=== PATIENT | female | born 2000 | race Two or more races ===

== ENCOUNTER → 2024-10-15 | Outpatient (CLI) | payer BC, SELFPAY ==
--- NOTE | 2024-10-15 08:41 | XR_ITS ---
Examination: Bilateral lower legs 4 views Technique one AP lateral right and left lower legs 4 views Exam date and time: October 15, 2024 0940 hours INDICATIONS: Bilateral caban pain after running 2 months ago FINDINGS: No fractures depicted No cortical bone destruction No opaque foreign bodies IMPRESSION: No stress fractures or other fractures noted
[2024-10-15 10:42] LABS: Collection Type, Urine Clean Catch
[2024-10-15 11:00] LABS: Basophils % (Auto) 1 % (0-2.5); Eosinophils # (Auto) 0.1 Thou/mm3 (0.0-0.5); Eosinophils % (Auto) 1 % (0-10); Hematocrit 39.5 % (36.0-46.0); Hemoglobin 13.3 g/dL (12.0-16.0); Immature Granulocytes % (Auto) 0 % (0-0); Immature Granulocytes Auto 0.01 Thou/mm3 (0.00-0.00); Lymphocytes # (Auto) 2.6 Thou/mm3 (1.0-4.8); Lymphocytes % (Auto) 43 % (10-50); Mean Corpuscular HGB Conc 33.7 g/dl (31.0-37.0); Mean Corpuscular Hemoglobin 28.4 pg (25.0-35.0); Mean Corpuscular Volume 84 fL (80-100); Monocytes # (Auto) 0.5 Thou/mm3 (0.0-0.8); Monocytes % (Auto) 7 % (0-12); Neutrophils % (Auto) 48 % (37-80); Nucleated Red Blood Cell % 0 /100 WBC (0); Platelet Count 260 Thou/mm3 (140-440); Red Blood Count 4.68 Miln/mm3 (4.00-5.20); White Blood Count 6.2 Thou/mm3 (3.6-11.0)
[2024-10-15 11:07] LABS: Bilirubin,Urine Negative (Negative); Blood,Urine Negative (Negative); Clarity,Urine Clear (Clear/Hazy); Color,Urine Lt-Yellow (Lt Yel-Yel); Culture Indicated,Urine Not Indicated; Glucose, Urine Negative (Negative); Ketones,Urine Negative (Negative); Leukocyte Esterase,Urine Positive (Negative); Nitrite,Urine Negative (Negative); Protein,Urine Negative (Neg - Trace); RBC,Urine 2 /hpf (0-3); Specific Gravity,Urine 1.012 (1.001-1.035); Squamous Epithelial Cell,Urine 8 /hpf (0-5); Urobilinogen,Urine Negative mg/dL (0.0-1.0); WBC,Urine 8 /hpf (0-5)
[2024-10-15 11:15] LABS: Alanine Aminotransferase 20 U/L (10-49); Albumin, Serum 4.7 gm/dL (3.5-5.0); Albumin/Globulin Ratio 1.9 (1.2-2.2); Alkaline Phosphatase 83 U/L (46-116); Anion Gap 5 (7-16); Aspartate Amino Transferase 19 U/L (0-34); BUN/Creatinine Ratio 14 Ratio (12-20); Bilirubin,Total 0.6 mg/dL (0.3-1.2); Blood Urea Nitrogen 14 mg/dL (9-23); Carbon Dioxide 28.3 mMol/L (20.0-31.0); Cardiac Risk Estimate 2.5 RATIO (3.7-5.6); Chloride 105 mMol/L (98-107); Cholesterol 151 mg/dL (132-200); Globulin 2.5 gm/dL (2.3-3.5); Glucose 89 mg/dL (74-106); HDL Cholesterol 61 mg/dL (40-60); LDL Cholesterol,Calculated 79 mg/dL (0-130); Osmolality,Calculated 275 (275-295); Potassium 3.9 mMol/L (3.4-5.1); Sodium 138 mMol/L (136-145); Thyroid Stimulating Hormone 1.75 uIU/mL (0.55-4.78); Total Protein 7.2 gm/dL (5.7-8.2); Triglycerides 57 mg/dL (30-150); eGFR > 60 See Note
[2024-10-15 11:17] LABS: Iron 113 mcg/dL (50-170); Vitamin B12 883 pg/mL (211-911); Vitamin D 25 Hydroxy Total 28.7 ng/mL (7.3-40.2)
== END | disposition home or self-care (01) ==
LOC: COPL 08:26
PROVIDERS: PCP Family Medicine; Referring Provider Nurse Practitioner Family; Visit Provider Radiology Diagnostic Radiology
DX: M79.669 Pain in unspecified lower leg (principal); D64.9 Anemia, unspecified; Z13.220 Encounter for screening for lipoid disorders
CPT/HCPCS: 36415; 73590; 80053; 80061; 81001; 82306; 82607; 83540; 84443; 85025

== ENCOUNTER 2025-05-13 13:46 | Outpatient (AMB) | payer BC, SELFPAY ==
--- NOTE | 2025-05-13 14:02 | OBCLNT_ITS ---
Vital Signs 05/13/25 14:09 Height 1.78 m Height Method Stated Weight 86.296 kg Weight Measurement Method Standing Scale BMI 27.3 BP 121/73 Blood Pressure Source Automatic Cuff Blood Pressure Location Right Upper Arm Position Sitting Respiration 17 Pulse 74 Pulse Source Monitor Temp 98.3 F Temp Source Temporal Artery Scan Pulse Oximetry (%) 98 Oxygen Delivery Method Room Air Allergies/Home Meds Allergies & Medications Allergies No Known Allergies Allergy (Verified 05/13/25 14:02) Intake Visit Data Collection New Patient or Established: New Patient (never been to [facility]) Reason for Visit:: OBI Printer'S Devil Required: No Do You Feel Safe at Home: Yes Authorities Contacted: N/A PCP or OBGYN visit in last 3 months: No Hx Now: Yes Last menstrual period: 03/21/25 Pain Present Currently: No Pain Scale Used: Najera-Lipscomb/Numerical Pain scale:: 0 Smoking Status Smoking Status: Never smoker Questionnaires Covid-19 Vaccine Questionnaire Has patient been vacinated for Covid-19 Have you been vacinated for Covid-19: No PHQ-9 PHQ-2 Over the last 2 weeks, how often have you been bothered by any of the following problems? 1. Little interest or pleasure in doing things: not at all 2. Feeling down, depressed, or hopeless: not at all Total score: 0 PHQ-9 3. Trouble falling or staying asleep, or sleeping too much: Not at all 4. Feeling tired or having little energy: Not at all 5. Poor appetite or overeating: Not at all 6. Feeling bad about yourself - or that you are a failure or have let yourself or your family down: Not at all 7. Trouble concentrating on things, such as reading the newspaper or watching television: Not at all 8. Moving or speaking so slowly that other people could have noticed? - Or the opposite - being so fidgety or restless that you have been moving around a lot more than usual: not at all 9. Thoughts that you would be better off or of hurting yourself in some way: Not at all Total score: 0 If you checked off any problems, how difficult have these problems made it for you to do your work, take care of things at home, or get along with other people?: not difficult at all Source: Developed by Drs. Jeffrey Pinedo, Sheri Malone, Lorne Harding and colleagues, with an educational kirk from [employer]. Depression screen completed yes Social History Living Situation History Marital Status: Life Partner Lives With: Significant Other Housing: House Housing Other:: Works at [employer]. FOB is personnel training officer Tobacco History Smoking Status: Never smoker Second Hand Smoke Exposure: Yes Alcohol History Alcohol Intake: Former Alcohol Intake Frequency: holidays/special occasions only Domestic Abuse History Do You Feel Safe at Home: Yes History of Present Illness HPI Narrative The patient is a 24 y/o who presents for a new OB appointment with the FOB. 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 They both are excited about the . She reports some spotting two weeks ago. 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: Past Medical History Past Medical History: No Hx Renal Disease, No Hx Diabetes Mellitus Type 1 and No Hx Diabetes Mellitus Type 2 Additional Operations/Hospitalizations (year & reason): Denies significant surgical history Other Relevant History: Denies any significant medical history OB Initial Visit Menstrual History Menstrual reliability: definite Flow: normal Menstrual regularity: regular Monthly: Yes Age at menarche: 13 On control pills at conception: No OB History : 1 Para: 0 Hx # Pregnancies: 0 Hx Total # of Abortions (Spontaneous & Elective): 0 # of Living Children: 0 Infection History & Risk Evaluation History of STDs: HPV Hepatitis B risk evaluation: low risk Patient or partner has history of Genital Herpes: No Varicella/chicken pox status: unknown Genetic Screening & History Genetic Screening/Teratology Counseling - Includes patient, baby's father, or anyone in either family with: 1. Patient's age 35 years or older as of estimated date of delivery: No 2. Thalassemia (Turks And Caicos Islander, Indonesian, Mediterranean, or Background); MCV less than 80: No 3. Neural Tube Defect (Meningomyelocele, Spina Bifida, or Anencephaly): No 4. Congenital Heart Defect: No 5. Down Syndrome: No 6. Cristino-Sachs (Ashkenazi Yazdanism, Cajun, English Moldovan): No 7. Carolyn Disease (Ashkenazi Yazdanism): No 8. Familial Dysautonomia (Ashkenazi Yazdanism): No 9. Sickle Cell Disease or Trait (): No 10. Hemophilia or other blood disorders: No 11. Muscular Dystrophy: No 12. Cystic Fibrosis: No 13. Placer's Chorea: No 14. Mental Retardation/Autism: No 15. Other inherited genetic or chromosomal disorder: No 16. Maternal Metabolic Disorder (EG,TYPE 1 Diabetes, PKU): No 17. Patient or baby's father had a child with defects not listed above: No 18. Recurrent loss or a stillbirth: No 19. Medications (including supplements, vitamins, herbs or otc drugs)/illicit/recreational drugs/alcohol since last menstrual period: No 20. Any other: No Infection History 1. Live with someone with TB or exposed to TB: No 2. Rash or viral illness since last menstrual period: No 3. Hepatitis B,C: No Other (see comments) Source: [employer] Review of Systems Review of Systems Narrative Review of Systems: +fatigue and breast tenderness, + mild nausea Exam General Limitations: no limitations General Appearance: alert, in no apparent distress, comfortable, cooperative, healthy appearing and well groomed Head Head exam: atraumatic, normocephalic and normal inspection Neck Neck exam: Present normal inspection, full ROM and trachea midline Chest Chest inspection: Present normal inspection and symmetric chest wall rise Resp Respiratory exam: Present normal lung sounds bilaterally Card Cardiovascular exam: Present regular rate, normal rhythm and normal heart sounds Abdominal Abdominal exam: Present soft and normal bowel sounds External exam: Present normal external exam Bimanual exam: Present normal bimanual exam (uterus 8 week size. Adequate pelvic outlet) Extremities Extremities exam: Present normal inspection and full ROM Psych Psychiatric exam: Present normal affect and normal mood Skin Skin exam: Present warm, dry, intact and normal color Office Procedures OB Clinic LOC & Office Proc's Nursing/Assessment Patient Status: Initial/New Patient OB Clinic Nursing Assessment: Medication Reconciliation, Update PMH in EMR and Vital Signs OB Clinic Coordination of Care: Complex Care and Chronic Disease 1-5, Consent,records obtained, informed consent, Education Simp Pt/Fam, Lab and Imaging orders and Staff clarify orders Special Needs: Heart tones New Patient Charge New Patient Point Assignment: [id number] New Patient Point Charge: SMOOTH AND BURR WORKER COMPOSITES Level 4 ([id number]) Assessment & Plan Diagnosis / Problem List (1) : Status: Acute Qualifiers: Weeks of gestation: less than 8 weeks Qualified Code(s): Z3A.01 - Less than 8 weeks gestation of Assessment and Plan: PNC labs ordered and NIPT from [facility]. New OB discussion. All questions answered. Pt will take vitamins. Offical US ordered for 2 weeks from now. Additional Plan Follow Up: 4 Weeks
[2025-05-13 14:09] VITALS: BP 121/73; PULSE 74; RESP 17; TEMP 36.8; O2SAT 98; BMI 27.3
== END 2025-05-13 14:38 | disposition home or self-care (01) ==
LOC: HODSOBC 13:46
PROVIDERS: PCP Family Medicine; Referring Provider Family Medicine; Supervising Provider Obstetrics & Gynecology; Visit Provider Obstetrics & Gynecology
DX: Z34.01 Encounter for supervision of normal first pregnancy, first trimester (principal); Z3A.01 Less than 8 weeks gestation of pregnancy
CPT/HCPCS: 99204; G0463

== ENCOUNTER 2025-07-08 13:05 | Outpatient (AMB) | payer BC, SELFPAY ==
[2025-07-08 13:06] VITALS: BP 120/76; PULSE 87; RESP 18; TEMP 36.8; O2SAT 98; BMI 28.8
--- NOTE | 2025-07-08 13:06 | AMB.OBVISIT ---
Vital Signs 07/08/25 13:06 Height 1.78 m Height Method Stated Weight 91.399 kg Weight Measurement Method Standing Scale BMI 28.8 BP 120/76 Blood Pressure Source Automatic Cuff Blood Pressure Location Left Upper Arm Position Sitting Respiration 18 Pulse 87 Pulse Source Monitor Temp 98.2 F Temp Source Oral Pulse Oximetry (%) 98 Oxygen Delivery Method Room Air Allergies/Home Meds Allergies & Medications Allergies No Known Allergies Allergy (Verified 07/08/25 13:07) Medication Reconciliation fluconazole 150 mg tablet 150 mg PO QDAY 1 dose #1 tab 07/08/25 [Rx] Intake Visit Data Collection New Patient or Established: Established Patient (seen at [facility] within 3 years) Reason for Visit:: CARE Seen by Clinical Staff ONLY (RN/MA): No Weigher And Charger Required: No Do You Feel Safe at Home: Yes Authorities Contacted: N/A PCP or OBGYN visit in last 3 months: Yes Hx Now: Yes Are you currently on any form of Control: No Pain Present Currently: No Pain Scale Used: Najera-Lipscomb/Numerical Pain scale:: 0 Smoking Status Smoking Status: Never smoker Questionnaires Covid-19 Vaccine Questionnaire Has patient been vacinated for Covid-19 Have you been vacinated for Covid-19: Yes PHQ-9 PHQ-2 Over the last 2 weeks, how often have you been bothered by any of the following problems? 1. Little interest or pleasure in doing things: not at all 2. Feeling down, depressed, or hopeless: not at all Total score: 0 PHQ-9 3. Trouble falling or staying asleep, or sleeping too much: Not at all 4. Feeling tired or having little energy: Not at all 5. Poor appetite or overeating: Not at all 6. Feeling bad about yourself - or that you are a failure or have let yourself or your family down: Not at all 7. Trouble concentrating on things, such as reading the newspaper or watching television: Not at all 8. Moving or speaking so slowly that other people could have noticed? - Or the opposite - being so fidgety or restless that you have been moving around a lot more than usual: not at all 9. Thoughts that you would be better off or of hurting yourself in some way: Not at all Total score: 0 Source: Developed by Drs. Jeffrey Pinedo, Sheri Malone, Lorne Harding and colleagues, with an educational kirk from [employer]. 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 Care OB Visit Log OB Flowsheet Initial Weight: Not Recorded Date <del>?</del> EGA Weight BP Alb Glu CTX Pres Fundal ht FHR Mov Dilation Station Effacement Hx Notes Visit Note 07/08/25 <del>?</del> 15w 4d 91.399 kg 120/76 15 Patient has some spotting recently. She also thinks she has a yeast infection. She was on amoxicillin recently for sinus infection. No heavy bleeding or cramps. Ultrasound was done revealing a live intrauterine measuring 5 weeks with cardiac activity in the 140s. JEAN-PAUL Calculator Estimated Delivery Date Method Current WG Current Estimate 12/26/25 LMP (Certain) 15w 4d Other Estimates 12/27/25 Ultrasound #1 15w 3d Expected Delivery Route/Plan 24-year-old Anticipate labs are as follows: B+ positive/antibody negative/rubella immune/RPR nonreactive/HIV negative/hepatitis B surface antigen negative/hep C negative/GC chlamydia negative/NIPT 46 XY Office Procedures OB Clinic LOC & Office Proc's Nursing/Assessment Patient Status: Established Patient OB Clinic Nursing Assessment: Medication Reconciliation, Update PMH in EMR and Vital Signs OB Clinic Coordination of Care: Complex Care and Chronic Disease 1-5, Consent,records obtained, informed consent, Education Simp Pt/Fam, Lab and Imaging orders, Results/Orders obtained and Staff clarify orders Special Needs: Heart tones Established Patient Charge Established Patient Point Assignment: 135 Established Patient Point Charge: EP Level 4 (510-069) Assessment & Plan Diagnosis / Problem List (1) : Status: Acute Qualifiers: Weeks of gestation: less than 8 weeks Qualified Code(s): Z3A.01 - Less than 8 weeks gestation of Plan: Patient is doing well. She has good energy. All questions were answered. Reassurance was given for the spotting. Told her it was most likely due to cervical irritation from her recent recent yeast infection. I did prescribe Diflucan. Patient's due date is 12/26/2025. Of note was given for light duty at work. Patient will follow-up in 4 weeks she will have a structural survey scheduled then.
== END 2025-07-08 14:15 | disposition home or self-care (01) ==
LOC: HODSOBC 13:05
PROVIDERS: PCP Family Medicine; Referring Provider Family Medicine; Supervising Provider Obstetrics & Gynecology; Visit Provider Obstetrics & Gynecology
DX: O09.892 Supervision of other high risk pregnancies, second trimester (principal); O98.811 Other maternal infectious and parasitic diseases complicating pregnancy, first trimester; B37.49 Other urogenital candidiasis; Z3A.15 15 weeks gestation of pregnancy
CPT/HCPCS: 99214; G0463

== ENCOUNTER 2025-08-08 14:25 | Outpatient (AMB) | payer BC, MEDICAID, SELFPAY ==
[2025-08-08 14:37] VITALS: BP 107/68; PULSE 64; RESP 14; TEMP 36.8; O2SAT 98; BMI 30.3
--- NOTE | 2025-08-08 14:37 | OBCLNT_ITS ---
Vital Signs 08/08/25 14:37 Height 1.78 m Height Method Stated Weight 96.218 kg Weight Measurement Method Standing Scale BMI 30.3 BP 107/68 Blood Pressure Source Automatic Cuff Blood Pressure Location Left Upper Arm Position Sitting Respiration 14 Pulse 64 Pulse Source Monitor Temp 98.2 F Temp Source Oral Pulse Oximetry (%) 98 Oxygen Delivery Method Room Air Allergies/Home Meds Allergies & Medications Allergies No Known Allergies Allergy (Verified 08/08/25 14:38) Medication Reconciliation fluconazole 150 mg tablet 150 mg PO QDAY 1 dose #1 tab 07/08/25 [Rx Confirmed 08/08/25] Intake Visit Data Collection New Patient or Established: Established Patient (seen at [facility] within 3 years) Reason for Visit:: CARE Seen by Clinical Staff ONLY (RN/MA): No Racquet Maker Required: No Do You Feel Safe at Home: Yes Authorities Contacted: N/A PCP or OBGYN visit in last 3 months: Yes Hx Now: Yes Are you currently on any form of Control: No Pain Present Currently: No Pain Scale Used: Najera-Lipscomb/Numerical Pain scale:: 0 Smoking Status Smoking Status: Never smoker Questionnaires Covid-19 Vaccine Questionnaire Has patient been vacinated for Covid-19 Have you been vacinated for Covid-19: Yes PHQ-9 PHQ-2 Over the last 2 weeks, how often have you been bothered by any of the following problems? 1. Little interest or pleasure in doing things: not at all 2. Feeling down, depressed, or hopeless: not at all Total score: 0 PHQ-9 3. Trouble falling or staying asleep, or sleeping too much: Not at all 4. Feeling tired or having little energy: Not at all 5. Poor appetite or overeating: Not at all 6. Feeling bad about yourself - or that you are a failure or have let yourself or your family down: Not at all 7. Trouble concentrating on things, such as reading the newspaper or watching television: Not at all 8. Moving or speaking so slowly that other people could have noticed? - Or the opposite - being so fidgety or restless that you have been moving around a lot more than usual: not at all 9. Thoughts that you would be better off or of hurting yourself in some way: Not at all Source: Developed by Drs. Jeffrey Pinedo, Sheri Malone, Lorne Harding and colleagues, with an educational kirk from [employer]. 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 She also thinks she has a yeast infection. She was on amoxicillin recently for sinus infection. No heavy bleeding or cramps. Ultrasound was done revealing a live intrauterine measuring 5 weeks with cardiac activity in the 140s. 08/08/25 -?-?-?-?-?-?-?-?-?-?-?-?- 20w 0d 96.218 kg 107/68 20 +FM No UCs or LOF +yeast infection: [email or web address] JEAN-PAUL Calculator Estimated Delivery Date Method Current WG Current Estimate 12/26/25 LMP (Certain) 20w 0d Other Estimates 12/27/25 Ultrasound #1 19w 6d Expected Delivery Route/Plan 24-year-old Anticipate labs are as follows: B+ positive/antibody negative/rubella immune/RPR nonreactive/HIV negative/hepatitis B surface antigen negative/hep C negative/GC chlamydia negative/NIPT 46 XY Office Procedures OB Clinic LOC & Office Proc's Nursing/Assessment Patient Status: Established Patient OB Clinic Nursing Assessment: Medication Reconciliation, Update PMH in EMR and Vital Signs OB Clinic Coordination of Care: Complex Care and Chronic Disease 1-5, Consent,records obtained, informed consent, Education Simp Pt/Fam, Lab and Imaging orders, Results/Orders obtained and Staff clarify orders Special Needs: Heart tones Established Patient Charge Established Patient Point Assignment: 135 Established Patient Point Charge: EP Level 4 (120-155) Assessment & Plan Diagnosis / Problem List (1) : Status: Acute Qualifiers: Weeks of gestation: 20 weeks Qualified Code(s): Z3A.20 - 20 weeks gestation of Plan: NIPT 46 XY. Ordered 20-week ultrasound some back instability recommend back brace Additional Plan Follow Up: 4 Weeks
== END 2025-08-08 15:15 | disposition home or self-care (01) ==
LOC: HODSOBC 14:25
PROVIDERS: PCP Family Medicine; Referring Provider Family Medicine; Supervising Provider Obstetrics & Gynecology; Visit Provider Obstetrics & Gynecology
DX: O09.892 Supervision of other high risk pregnancies, second trimester (principal); O98.812 Other maternal infectious and parasitic diseases complicating pregnancy, second trimester; B37.9 Candidiasis, unspecified; Z3A.20 20 weeks gestation of pregnancy
CPT/HCPCS: 99214; G0463

== ENCOUNTER 2025-08-29 13:54 | Outpatient (AMB) | payer BC, MEDICAID, SELFPAY ==
[2025-08-29 14:02] VITALS: BP 129/82; PULSE 89; RESP 18; TEMP 36.2; O2SAT 98; BMI 31.2
--- NOTE | 2025-08-29 14:02 | OBCLNT_ITS ---
Vital Signs 08/29/25 14:02 Height 1.78 m Height Method Stated Weight 98.997 kg Weight Measurement Method Standing Scale BMI 31.2 BP 129/82 Blood Pressure Source Automatic Cuff Blood Pressure Location Left Upper Arm Position Sitting Respiration 18 Pulse 89 Pulse Source Monitor Temp 97.2 F Temp Source Oral Pulse Oximetry (%) 98 Oxygen Delivery Method Room Air Allergies/Home Meds Allergies & Medications Allergies No Known Allergies Allergy (Verified 08/29/25 14:10) Medication Reconciliation fluconazole 150 mg tablet 150 mg PO QDAY 1 dose #7 tabs 08/08/25 [Rx Confirmed 08/29/25] Intake Visit Data Collection New Patient or Established: Established Patient (seen at [facility] within 3 years) Reason for Visit:: OBC Seen by Clinical Staff ONLY (RN/MA): No Solutions Sales Executive Required: No Do You Feel Safe at Home: Yes Authorities Contacted: N/A PCP or OBGYN visit in last 3 months: Yes Date of Last PCP or OBGYN visit: 08/08/25 Hx Now: Yes Are you currently on any form of Control: No Pain Present Currently: No Pain Scale Used: Najera-Lipscomb/Numerical Pain scale:: 0 Smoking Status Smoking Status: Never smoker Questionnaires Covid-19 Vaccine Questionnaire Has patient been vacinated for Covid-19 Have you been vacinated for Covid-19: Yes PHQ-9 PHQ-2 Over the last 2 weeks, how often have you been bothered by any of the following problems? 1. Little interest or pleasure in doing things: not at all 2. Feeling down, depressed, or hopeless: not at all Total score: 0 PHQ-9 3. Trouble falling or staying asleep, or sleeping too much: Not at all 4. Feeling tired or having little energy: Not at all 5. Poor appetite or overeating: Not at all 6. Feeling bad about yourself - or that you are a failure or have let yourself or your family down: Not at all 7. Trouble concentrating on things, such as reading the newspaper or watching television: Not at all 8. Moving or speaking so slowly that other people could have noticed? - Or the opposite - being so fidgety or restless that you have been moving around a lot more than usual: not at all 9. Thoughts that you would be better off or of hurting yourself in some w ay: Not at all Total score: 0 If you checked off any problems, how difficult have these problems made it for you to do your work, take care of things at home, or get along with other people?: not difficult at all Source: Developed by Drs. Jeffrey Pinedo, Sheri Malone, Lorne Harding and colleagues, with an educational kirk from [employer]. Depression screen completed yes Social History Living Situation History Lives With: Significant Other Housing: House Housing Other:: Works at [email or web address]. 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 She also thinks she has a yeast infection. She was on amoxicillin recently for sinus infection. No heavy bleeding or cramps. Ultrasound was done revealing a live intrauterine measuring 5 weeks with cardiac activity in the 140s. 08/08/25 -?-?-?-?-?-?-?-?-?-?-?-?- 20w 0d 96.218 kg 107/68 20 +FM No UCs or LOF +yeast infection: Diflucan 08/29/25 -?-?-?-?-?-?-?-?-?-?-?-?- 23w 0d 98.997 kg 129/82 23 147 +FM No UCs or LOF JEAN-PAUL Calculator Estimated Delivery Date Method Current WG Current Estimate 12/26/25 LMP (Certain) 23w 1d Other Estimates 12/27/25 Ultrasound #1 23w 0d Expected Delivery Route/Plan 24-year-old Anticipate labs are as follows: B+ positive/antibody negative/rubella immune/RPR nonreactive/HIV negative/hepatitis B surface antigen negative/hep C negative/GC chlamydia negative/NIPT 46 XY Specific Issue/Plans Pubic bone diastases brace ordered Notes Visit Date: 08/29/25 Last Updated by: Mariaelena Lopez (OB Clinic)MD [facility] referral. Anatomy scan ordered for [facility]. Pelvic brace authorized. Follow-up in 4 weeks Office Procedures OBC Clinic LOC & Office Proc's Nursing/Assessment Patient Status: Established Patient OB Clinic Nursing Assessment: Medication Reconciliation, Update PMH in EMR and Vital Signs OB Clinic Coordination of Care: Education Complex Pt/Fam, Consent,records obtained, informed consent, Lab and Imaging orders, Results/Orders obtained and Staff clarify orders Special Needs: Heart tones Established Patient Charge Established Patient Point Assignment: 115 Established Patient Point Charge: EP Level 3 (80-115) Assessment & Plan Diagnosis / Problem List (1) : Status: Acute Qualifiers: Weeks of gestation: 24 weeks Qualified Code(s): Z3A.24 - 24 weeks gestation of Additional Plan Follow Up: 4 Weeks
== END 2025-08-29 15:06 | disposition home or self-care (01) ==
LOC: HODSOBC 13:54
PROVIDERS: Supervising Provider Obstetrics & Gynecology; Visit Provider Obstetrics & Gynecology
DX: Z34.02 Encounter for supervision of normal first pregnancy, second trimester (principal); Z3A.23 23 weeks gestation of pregnancy
CPT/HCPCS: 99213; G0463

== ENCOUNTER 2025-08-30 22:35 | Observation (INO) | payer BC, MEDICAID, SELFPAY ==
[2025-08-30 22:44] VITALS: BMI 32.6
[2025-08-30 22:49] VITALS: BP 114/71; PULSE 69; RESP 18; RESP 98; TEMP 36.8
[2025-08-30] MEDS: ACETAMINOPHEN 500 MG TABLET 1000 MG PO (23:44)
[2025-08-30 23:45] LABS: Collection Type, Urine Clean Catch
[2025-08-30 23:49] LABS: Bilirubin,Urine Negative (Negative); Blood,Urine Negative (Negative); Clarity,Urine Clear (Clear/Hazy); Color,Urine Colorless (Lt Yel-Yel); Glucose, Urine Negative (Negative); Ketones,Urine Negative (Negative); Leukocyte Esterase,Urine Negative (Negative); Nitrite,Urine Negative (Negative); PH,Urine 7.0 (5.0-7.0); Protein,Urine Negative (Neg - Trace); RBC,Urine 1 /hpf (0-3); Specific Gravity,Urine 1.015 (1.001-1.035); Squamous Epithelial Cell,Urine < 1 /hpf (0-5); Urobilinogen,Urine Negative mg/dL (0.0-1.0); WBC,Urine < 1 /hpf (0-5)
[2025-08-31 00:22] LABS: FFN Specimen Descripton Clr Colrless Aqueous; Fetal Fibronectin Positive (Negative)
== END 2025-08-31 01:09 | disposition home or self-care (01) ==
PROVIDERS: Admitting Provider Obstetrics & Gynecology; Visit Provider Obstetrics & Gynecology
DX: O26.892 Other specified pregnancy related conditions, second trimester (principal); Z3A.23 23 weeks gestation of pregnancy; R10.9 Unspecified abdominal pain; M54.9 Dorsalgia, unspecified
CPT/HCPCS: 59899; 81001; 82731; A9270

== ENCOUNTER → 2025-09-09 | Outpatient (CLI) | payer BC, MEDICAID, SELFPAY ==
[2025-09-09 12:26] LABS: Basophils # (Auto) 0.0 Thou/mm3 (0.0-0.2); Basophils % (Auto) 0 % (0-2.5); Eosinophils # (Auto) 0.1 Thou/mm3 (0.0-0.5); Eosinophils % (Auto) 1 % (0-10); Hematocrit 35.1 % (36.0-46.0); Hemoglobin 11.9 g/dL (12.0-16.0); Immature Granulocytes Auto 0.03 Thou/mm3 (0.00-0.00); Lymphocytes # (Auto) 2.2 Thou/mm3 (1.0-4.8); Lymphocytes % (Auto) 26 % (10-50); Mean Corpuscular HGB Conc 33.9 g/dl (31.0-37.0); Mean Corpuscular Hemoglobin 29.0 pg (25.0-35.0); Mean Corpuscular Volume 86 fL (80-100); Monocytes # (Auto) 0.5 Thou/mm3 (0.0-0.8); Monocytes % (Auto) 6 % (0-12); Neutrophils # (Auto) 5.6 Thou/mm3 (1.8-7.7); Neutrophils % (Auto) 67 % (37-80); Nucleated Red Blood Cell # 0.00 Thou/mm3 (0.00-0.00); Nucleated Red Blood Cell % 0 /100 WBC (0); Platelet Count 231 Thou/mm3 (140-440); RDW Standard Deviation 39.6 fL (36.4-46.3); Red Blood Count 4.10 Miln/mm3 (4.00-5.20); White Blood Count 8.4 Thou/mm3 (3.6-11.0)
[2025-09-09 12:38] LABS: Glucose,1 Hour PP 50gm Dose 88 mg/dL (80-140)
[2025-09-09 12:57] LABS: Syphilis Nonreactive (Nonreactive)
== END | disposition home or self-care (01) ==
PROVIDERS: PCP Family Medicine; Referring Provider Obstetrics & Gynecology; Visit Provider Obstetrics & Gynecology
DX: Z34.92 Encounter for supervision of normal pregnancy, unspecified, second trimester (principal); Z3A.24 24 weeks gestation of pregnancy
CPT/HCPCS: 36415; 82950; 85025; 86780

== ENCOUNTER 2025-09-26 13:10 | Outpatient (AMB) | payer BC, MEDICAID, SELFPAY ==
[2025-09-26 13:22] VITALS: BP 114/74; PULSE 78; RESP 16; TEMP 36.9; O2SAT 96; BMI 32.1
--- NOTE | 2025-09-26 13:22 | OBCLNT_ITS ---
Vital Signs 09/26/25 13:22 Height 1.78 m Height Method Stated Weight 101.605 kg Weight Measurement Method Standing Scale BMI 32.1 BP 114/74 Blood Pressure Source Automatic Cuff Blood Pressure Location Left Upper Arm Position Sitting Respiration 16 Pulse 78 Pulse Source Monitor Temp 98.5 F Temp Source Oral Pulse Oximetry (%) 96 Oxygen Delivery Method Room Air Allergies/Home Meds Allergies & Medications Allergies No Known Allergies Allergy (Verified 09/26/25 13:23) Medication Reconciliation fluconazole 150 mg tablet 150 mg PO QDAY 1 dose #7 tabs 08/08/25 [Rx Confirmed 09/26/25] Intake Visit Data Collection New Patient or Established: Established Patient (seen at [facility] within 3 years) Reason for Visit:: CARE Seen by Clinical Staff ONLY (RN/MA): No 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 Do You Feel Safe at Home: Yes Authorities Contacted: N/A PCP or OBGYN visit in last 3 months: Yes Hx Now: Yes Are you currently on any form of Control: No Pain Present Currently: No Pain Scale Used: Najera-Lipscomb/Numerical Pain scale:: 0 Smoking Status Smoking Status: Never smoker Immunizations Flu Vaccine in the Last 12 Months: Yes Flu Vaccine Exclusion Criteria: Already Received Questionnaires Covid-19 Vaccine Questionnaire Has patient been vacinated for Covid-19 Have you been vacinated for Covid-19: Yes PHQ-9 PHQ-2 Over the last 2 weeks, how often have you been bothered by any of the following problems? 1. Little interest or pleasure in doing things: not at all 2. Feeling down, depressed, or hopeless: not at all Total score: 0 PHQ-9 3. Trouble falling or staying asleep, or sleeping too much: Not at all 4. Feeling tired or having little energy: Not at all 5. Poor appetite or overeating: Not at all 6. Feeling bad about yourself - or that you are a failure or have let yourself or your family down: Not at all 7. Trouble concentrating on things, such as reading the newspaper or watching television: Not at all 8. Moving or speaking so slowly that other people could have noticed? - Or the opposite - being so fidgety or restless that you have been moving around a lot more than usual: not at all 9. Thoughts that you would be better off or of hurting yourself in some way: Not at all Total score: 0 Source: Developed by Drs. Jeffrey Pinedo, Sheri Malone, Lorne Harding and colleagues, with an educational kirk from [employer]. 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 She also thinks she has a yeast infection. She was on amoxicillin recently for sinus infection. No heavy bleeding or cramps. Ultrasound was done revealing a live intrauterine measuring 5 weeks with cardiac activity in the 140s. 08/08/25 -?-?-?-?-?-?-?-?-?-?-?-?- 20w 0d 96.218 kg 107/68 20 +FM No UCs or LOF +yeast infection: Diflucan 08/29/25 -?-?-?-?-?-?-?-?-?-?-?-?- 23w 0d 98.997 kg 129/82 23 147 +FM No UCs or LOF 09/26/25 -?-?-?-?-?-?-?-?-?-?-?-?- w 0d 101.605 kg 114/74 absent unknown 26 145 active Increased third trimester discomforts and back pain. Reports movement. Denies labor Comfort measures for back pain. Get a follow-up on her maternity garment that was ordered. Reviewed dates, reviewed labs. Return in 3 weeks OB check JEAN-PAUL Calculator Estimated Delivery Date Method Current WG Current Estimate 12/26/25 LMP (Certain) 27w 0d Other Estimates 12/27/25 Ultrasound #1 26w 6d 12/18/25 Ultrasound #2 28w 1d 12/26/25 Manual 27w 0d Expected Delivery Route/Plan 24-year-old Anticipate labs are as follows: B+ positive/antibody negative/rubella immune/RPR nonreactive/HIV negative/hepatitis B surface antigen negative/hep C negative/GC chlamydia negative/NIPT 46 XY Specific Issue/Plans Pubic bone diastases brace ordered Notes Visit Date: 09/26/25 Last Updated by: Carolina Hahn CNM B+,abs-, rpr;;nr, rub imm, hbsag-,hiv-,hc-, hiv-, gc/ct-, nipt-, 3rd tri lab wnl Visit Date: 08/29/25 Last Updated by: Mariaelena Lopez (OB Clinic)MD [facility] referral. Anatomy scan ordered for [facility]. Pelvic brace authorized. Follow-up in 4 weeks Office Procedures OBC Clinic LOC & Office Proc's Nursing/Assessment Patient Status: Established Patient OB Clinic Nursing Assessment: Medication Reconciliation, Update PMH in EMR and Vital Signs OB Clinic Coordination of Care: Complex Care and Chronic Disease 1-5, Consent,records obtained, informed consent, Education Simp Pt/Fam, Lab and Imaging orders, Results/Orders obtained and Staff clarify orders Special Needs: Heart tones Established Patient Charge Established Patient Point Assignment: 135 Established Patient Point Charge: EP Level 4 (120-155) Assessment & Plan Diagnosis / Problem List (1) Encounter for supervision of normal first , second trimester: Status: Acute Plan Reviewed labs. Discussed dates. Comfort measures for back pain all follow-up on maternity garment. Discussed labor precautions. Return in 2 weeks Additional Plan Follow Up: 3 Weeks (ob)
== END 2025-09-26 13:53 | disposition home or self-care (01) ==
PROVIDERS: Supervising Provider Advanced Practice Midwife; Visit Provider Advanced Practice Midwife
DX: Z34.02 Encounter for supervision of normal first pregnancy, second trimester (principal); Z3A.27 27 weeks gestation of pregnancy
CPT/HCPCS: 99214; G0463

== ENCOUNTER 2025-10-03 09:31 | Outpatient (AMB) | payer BC, MEDICAID, SELFPAY ==
--- NOTE | 2025-10-03 09:32 | OBCLNT_ITS ---
Allergies/Home Meds Allergies & Medications Allergies No Known Allergies Allergy (Verified 10/03/25 09:32) Intake Visit Data Collection New Patient or Established: Established Patient (seen at [facility] within 3 years) Reason for Visit:: DENTAL CLEARANCE Consent obtained for Telemed Visit: Yes Seen by Clinical Staff ONLY (RN/MA): No Benzene Still Utility Operator Required: No Do You Feel Safe at Home: Yes Authorities Contacted: N/A PCP or OBGYN visit in last 3 months: Yes Date of Last PCP or OBGYN visit: 08/30/25 Hx Now: Yes Are you currently on any form of Control: No Pain Present Currently: No Pain Scale Used: Najera-Lipscomb/Numerical Pain scale:: 0 Smoking Status Smoking Status: Never smoker Immunizations Flu Vaccine in the Last 12 Months: No Flu Vaccine Exclusion Criteria: No Exclusion Criteria For Telemed visit only Telemed Video/Phone Visit: Yes Verbal consent obtained for Telemed visit?: Yes Telemed Video/Phone visit w/Clinical Staff: 11-20 min Questionnaires Covid-19 Vaccine Questionnaire Has patient been vacinated for Covid-19 Have you been vacinated for Covid-19: No PHQ-9 PHQ-2 Over the last 2 weeks, how often have you been bothered by any of the following problems? 1. Little interest or pleasure in doing things: not at all 2. Feeling down, depressed, or hopeless: not at all Total score: 0 PHQ-9 3. Trouble falling or staying asleep, or sleeping too much: Not at all 4. Feeling tired or having little energy: Not at all 5. Poor appetite or overeating: Not at all 6. Feeling bad about yourself - or that you are a failure or have let yourself or your family down: Not at all 7. Trouble concentrating on things, such as reading the newspaper or watching television: Not at all 8. Moving or speaking so slowly that other people could have noticed? - Or the opposite - being so fidgety or restless that you have been moving around a lot more than usual: not at all 9. Thoughts that you would be better off or of hurting yourself in some way: Not at all Total score: 0 If you checked off any problems, how difficult have these problems made it for you to do your work, take care of things at home, or get along with other people?: not difficult at all Source: Developed by Drs. Jeffrey Pinedo, Sheri Malone, Lorne Harding and colleagues, with an educational kirk from [employer]. 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 She also thinks she has a yeast infection. She was on amoxicillin recently for sinus infection. No heavy bleeding or cramps. Ultrasound was done revealing a live intrauterine measuring 5 weeks with cardiac activity in the 140s. 08/08/25 -?-?-?-?-?-?-?-?-?-?-?-?- 20w 0d 96.218 kg 107/68 20 +FM No UCs or LOF +yeast infection: Diflucan 08/29/25 -?-?-?-?-?-?-?-?-?-?-?-?- 23w 0d 98.997 kg 129/82 23 147 +FM No UCs or LOF 09/26/25 -?-?-?-?-?-?-?-?-?-?-?-?- w 0d 101.605 kg 114/74 absent unknown 26 145 active Increased third trimester discomforts and back pain. Reports movement. Denies labor Comfort measures for back pain. Get a follow-up on her maternity garment that was ordered. Reviewed dates, reviewed labs. Return in 3 weeks OB check 10/03/25 -?-?-?-?-?-?-?-?-?-?-?-?- 28w 0d absent unknown Virtual appointment today for questions about dentist appointment. Patient had a root canal during the process the dentist gave her amoxicillin because she has wisdom teeth that are infected. And patient want to make sure it was safe. Reports good movement. Denies leaking, bleeding, contractions Okay to take amoxicillin 500 p.o. 3 times daily for infection. Follow dentist orders. Discussed comfort measures and oral hygiene. Return for scheduled OB appointment JEAN-PAUL Calculator Estimated Delivery Date Method Current WG Current Estimate 12/26/25 LMP (Certain) 28w 0d Other Estimates 12/27/25 Ultrasound #1 27w 6d 12/18/25 Ultrasound #2 29w 1d 12/26/25 Manual 28w 0d Expected Delivery Route/Plan 24-year-old Anticipate labs are as follows: B+ positive/antibody negative/rubella immune/RPR nonreactive/HIV negative/hepatitis B surface antigen negative/hep C negative/GC chlamydia negative/NIPT 46 XY Specific Issue/Plans Pubic bone diastases brace ordered Notes Visit Date: 09/26/25 Last Updated by: Carolina Hahn CNM B+,abs-, rpr;;nr, rub imm, hbsag-,hiv-,hc-, hiv-, gc/ct-, nipt-, 3rd tri lab wnl Visit Date: 08/29/25 Last Updated by: Mariaelena Lopez (OB Clinic)MD [facility] referral. [facility] scan [facility]. Pelvic brace authorized. Follow-up in 4 weeks Office Procedures OBC Clinic LOC & Office Proc's Nursing/Assessment Patient Status: Established Patient OB Clinic Nursing Assessment: Medication Reconciliation and Update PMH in EMR OB Clinic Coordination of Care: Complex Care and Chronic Disease 1-5, Education Complex Pt/Fam, Consent,records obtained, informed consent, Results/Orders obtained and Staff clarify orders Established Patient Charge Established Patient Point Assignment: 80 Established Patient Point Charge: EP Level 3 (80-115) Telehealth If patient is seen using Teleconference methods, complete New/Est section, but DO NOT shanon points only shanon the correct Telemed visit type Telemed Phone/Video with patient at home & ,PA,AIRCRAFT LOG CLERK: Yes Telemed Phone/Video with patient in Clinic w/,AIRCRAFT LOG CLERK,PA outside Clinic: Yes Assessment & Plan Diagnosis / Problem List (1) Encounter for supervision of high risk in third trimester, antepartum: Status: Acute Plan Continue amoxicillin 500 3 times daily for oral infection. Continue to seek ca re from her dentist. Discussed oral hygiene and comfort measures. Return in 3 weeks as scheduled appointment Additional Plan Follow Up: 3 Weeks (obc)
== END 2025-10-03 10:02 | disposition home or self-care (01) ==
LOC: HODSOBC 09:31
PROVIDERS: Supervising Provider Advanced Practice Midwife; Visit Provider Advanced Practice Midwife
DX: O09.893 Supervision of other high risk pregnancies, third trimester (principal); O98.813 Other maternal infectious and parasitic diseases complicating pregnancy, third trimester; K04.7 Periapical abscess without sinus; Z3A.28 28 weeks gestation of pregnancy
CPT/HCPCS: 99212; 99213; Q3014; G0463

== ENCOUNTER 2025-10-13 11:39 | Observation (INO) | payer BC, MEDICAID, SELFPAY ==
[2025-10-13 11:51] VITALS: BP 111/61; PULSE 64
[2025-10-13 12:14] VITALS: BP 111/61; PULSE 64; RESP 18; RESP 98; TEMP 36.7
== END 2025-10-13 12:25 | disposition home or self-care (01) ==
PROVIDERS: Admitting Provider Obstetrics & Gynecology; Visit Provider Obstetrics & Gynecology
DX: O36.8130 Decreased fetal movements, third trimester, not applicable or unspecified (principal); Z3A.29 29 weeks gestation of pregnancy
CPT/HCPCS: 59025; 59899

== ENCOUNTER 2025-10-17 12:58 | Outpatient (AMB) | payer BC, MEDICAID, SELFPAY ==
--- NOTE | 2025-10-17 13:09 | OBCLNT_ITS ---
Vital Signs 10/17/25 13:10 Height 1.78 m Height Method Stated Weight 103.192 kg Weight Measurement Method Standing Scale BMI 32.5 BP 109/72 Blood Pressure Source Automatic Cuff Blood Pressure Location Left Upper Arm Position Sitting Respiration 16 Pulse 75 Pulse Source Monitor Temp 97.4 F Temp Source Oral Pulse Oximetry (%) 98 Oxygen Delivery Method Room Air Allergies/Home Meds Allergies & Medications Allergies No Known Allergies Allergy (Verified 10/17/25 13:14) Medication Reconciliation No Known Home Medications 10/17/25 [History Confirmed 10/17/25] Intake Visit Data Collection New Patient or Established: Established Patient (seen at [facility] within 3 years) Reason for Visit:: CARE Seen by Clinical Staff ONLY (RN/MA): No Tar 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 Required: No Do You Feel Safe at Home: Yes Authorities Contacted: N/A PCP or OBGYN visit in last 3 months: Yes Hx Now: Yes Are you currently on any form of Control: No Pain Present Currently: No Pain Scale Used: Najera-Lipscomb/Numerical Pain scale:: 0 Smoking Status Smoking Status: Never smoker Immunizations Flu Vaccine in the Last 12 Months: Yes Flu Vaccine Exclusion Criteria: Already Received Questionnaires Covid-19 Vaccine Questionnaire Has patient been vacinated for Covid-19 Have you been vacinated for Covid-19: Yes PHQ-9 PHQ-2 Over the last 2 weeks, how often have you been bothered by any of the following problems? 1. Little interest or pleasure in doing things: not at all 2. Feeling down, depressed, or hopeless: not at all Total score: 0 PHQ-9 3. Trouble falling or staying asleep, or sleeping too much: Not at all 4. Feeling tired or having little energy: Not at all 5. Poor appetite or overeating: Not at all 6. Feeling bad about yourself - or that you are a failure or have let yourself or your family down: Not at all 7. Trouble concentrating on things, such as reading the newspaper or watching television: Not at all 8. Moving or speaking so slowly that other people could have noticed? - Or the opposite - being so fidgety or restless that you have been moving around a lot more than usual: not at all 9. Thoughts that you would be better off or of hurting yourself in some way: Not at all Total score: 0 Source: Developed by Drs. Jeffrey Pinedo, Sheri Malone, Lorne Harding and colleagues, with an educational kirk from [employer]. 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 She also thinks she has a yeast infection. She was on amoxicillin recently for sinus infection. No heavy bleeding or cramps. Ultrasound was done revealing a live intrauterine measuring 5 weeks with cardiac activity in the 140s. 08/08/25 -?-?-?-?-?-?-?-?-?-?-?-?- 20w 0d 96.218 kg 107/68 20 +FM No UCs or LOF +yeast infection: Diflucan 08/29/25 -?-?-?-?-?-?-?-?-?-?-?-?- 23w 0d 98.997 kg 129/82 23 147 +FM No UCs or LOF 09/26/25 -?-?-?-?-?-?-?-?-?-?-?-?- w 0d 101.605 kg 114/74 absent unknown 26 145 active Increased third trimester discomforts and back pain. Reports movement. Denies labor Comfort measures for back pain. Get a follow-up on her maternity garment that was ordered. Reviewed dates, reviewed labs. Return in 3 weeks OB check 10/03/25 -?-?-?-?-?-?-?-?-?-?-?-?- 28w 0d absent unknown Virtual appointment today for questions about dentist appointment. Patient had a root canal during the process the dentist gave her amoxicillin because she has wisdom teeth that are infected. And patient want to make sure it was safe. Reports good movement. Denies leaking, bleeding, contractions Okay to take amoxicillin 500 p.o. 3 times daily for infection. Follow dentist orders. Discussed comfort measures and oral hygiene. Return for scheduled OB appointment 10/17/25 -?-?-?-?-?-?-?-?-?-?-?-?- 30w 0d 103.192 kg 109/72 absent cephalic 28 14 5 active Continued lower back pain. 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 Reports good movement. Denies leaking, bleeding, contractions Sono for size da dane. Discussed comfort measures for backache. I ordered a maternity girdle. Continue prenatals. Increase fluids. Disability in 3 weeks Sono for size dates. Discus sed comfort measures for backache. I ordered a maternity girdle. Continue prenatals. Increase fluids. Disability in 3 weeks. TDAP JEAN-PAUL Calculator Estimated Delivery Date Method Current WG Current Estimate 12/26/25 LMP (Certain) 30w 0d Other Estimates 12/27/25 Ultrasound #1 29w 6d 12/18/25 Ultrasound #2 31w 1d 12/26/25 Manual 30w 0d Expected Delivery Route/Plan 24-year-old Anticipate labs are as follows: B+ positive/antibody negative/rubella immune/RPR nonreactive/HIV negative/hepatitis B surface antigen negative/hep C negative/GC chlamydia negative/NIPT 46 XY Specific Issue/Plans Pubic bone diastases brace ordered Notes Visit Date: 09/26/25 Last Updated by: Carolina Hahn CNM B+,abs-, rpr;;nr, rub imm, hbsag-,hiv-,hc-, hiv-, gc/ct-, nipt-, 3rd tri lab wnl Visit Date: 08/29/25 Last Updated by: Mariaelena Lopez (OB Clinic), [facility] referral. Anatomy scan ordered for [facility]. Pelvic brace authorized. Follow-up in 4 weeks Office Procedures OBC Clinic LOC & Office Proc's Nursing/Assessment Patient Status: Established Patient OB Clinic Nursing Assessment: Medication Reconciliation, Update PMH in EMR and Vital Signs OB Clinic Coordination of Care: Complex Care and Chronic Disease 1-5, Consent,records obtained, informed consent, Education Simp Pt/Fam, 1 Ins Authorization, Lab and Imaging orders, Results/Orders obtained and Staff clarify orders Special Needs: Heart tones Established Patient Charge Established Patient Point Assignment: 150 Established Patient Point Charge: EP Level 4 (120-155) Injection/Vaccine Admin SQ Im Injection: Yes Immunizations diphth,pertus(acell),tetanus 2.5 Lf unit-8 mcg-5 Lf/0.5mL IM syringe Performing Provider: Carolina Hahn CNM Performing Location: [facility] RN Clinic Administered by: Kelsie Walker MA on 10/17/25 15:24 Dose Route Admin Location Dispensed Lot Number Expiration Date Pack age [facility] Blender/Braze Applicator 0.5 mL IM Left Deltoid 0.5 mL [id number] 05/12/28 [id number] Travel Notes VIS Given Date VIS Provided VIS Publication Date 10/17/25 Single Vaccine 24 Eligibility Eligibility Date Funding Source Public Non-[facility] Assessment & Plan Diagnosis / Problem List (1) Encounter for supervision of high risk in third trimester, antepartum: Status: Acute (2) [id number] fetus, third trimester: Status: Acute Plan Discussed labor precautions. Tdap today. Comfort measures for low backache. Ordered maternity girl. Disability in 3 weeks. Sono for growth at [facility] imaging Additional Plan Follow Up: 2 Weeks (obc)
[2025-10-17 13:10] VITALS: BP 109/72; PULSE 75; RESP 16; TEMP 36.3; O2SAT 98; BMI 32.5
== END 2025-10-17 13:29 | disposition home or self-care (01) ==
LOC: HODSOBC 12:58
PROVIDERS: Supervising Provider Advanced Practice Midwife; Visit Provider Advanced Practice Midwife
DX: O09.893 Supervision of other high risk pregnancies, third trimester (principal); O36.5930 Maternal care for other known or suspected poor fetal growth, third trimester, not applicable or unspecified; Z3A.30 30 weeks gestation of pregnancy; Z23 Encounter for immunization
CPT/HCPCS: 90471; 90715; 96372; 99214; G0463

== ENCOUNTER 2025-11-08 11:32 | Outpatient (AMB) | payer BC, MEDICAID, SELFPAY ==
[2025-11-08 11:41] VITALS: BP 113/77; PULSE 105; RESP 18; TEMP 36.6; O2SAT 98; BMI 33.7
--- NOTE | 2025-11-08 11:41 | OBCLNT_ITS ---
Vital Signs 11/08/25 11:41 Height 1.78 m Height Method Stated Weight 107.048 kg Weight Measurement Method Standing Scale BMI 33.7 BP 113/77 Blood Pressure Source Automatic Cuff Blood Pressure Location Left Upper Arm Position Sitting Respiration 18 Pulse 105 H Pulse Source Monitor Temp 97.8 F Temp Source Oral Pulse Oximetry (%) 98 Oxygen Delivery Method Room Air Allergies/Home Meds Allergies & Medications Allergies No Known Allergies Allergy (Verified 11/08/25 11:42) Immunizations Immunizations Flu Vaccine in the Last 12 Months: No Flu Vaccine Exclusion Criteria: No Exclusion Criteria Care OB Visit Log OB Flowsheet Initial Weight: Not Recorded Date -?-?-?-?-?-?-?-?-?-?-?-?- EGA Weight BP Alb Glu CTX Pres Fundal ht FHR Mov Dilation Station Effacement Hx Notes Visit Note 07/08/25 -?-?-?-?-?-?-?-?-?-?-?-?- 15w 4d 91.399 kg 120/76 15 Patient has some spotting recently. She also thinks she has a yeast infection. She was on amoxicillin recently for sinus infection. No heavy bleeding or cramps. Ultrasound was done revealing a live intrauterine measuring 5 weeks with cardiac activity in the 140s. 08/08/25 -?-?-?-?-?-?-?-?-?-?-?-?- 20w 0d 96.218 kg 107/68 20 +FM No UCs or LOF +yeast infection: Diflucan 08/29/25 -?-?-?-?-?-?-?-?-?-?-?-?- 23w 0d 98.997 kg 129/82 23 147 +FM No UCs or LOF 09/26/25 -?-?-?-?-?-?-?-?-?-?-?-?- w 0d 101.605 kg 114/74 absent unknown 26 145 active Increased third trimester discomforts and back pain. Reports movement. Denies labor Comfort measures for back pain. Get a follow-up on her maternity garment that was ordered. Reviewed dates, reviewed labs. Return in 3 weeks OB check 10/03/25 -?-?-?-?-?-?-?-?-?-?-?-?- 28w 0d absent unknown Virtual appointment today for questions about dentist appointment. Patient had a root canal during the process the dentist gave her amoxicillin because she has wisdom teeth that are infected. And patient want to make sure it was safe. Reports good movement. Denies leaking, bleeding, contractions Okay to take amoxicillin 500 p.o. 3 times daily for infection. Follow dentist orders. Discussed comfort measures and oral hygiene. Return for scheduled OB appointment 10/17/25 -?-?-?-?-?-?-?-?-?-?-?-?- 30w 0d 103.192 kg 109/72 absent cephalic 28 14 5 active Continued lower back pain. 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 Reports good movement. Denies leaking, bleeding, contractions Sono for size da dane. Discussed comfort measures for backache. I ordered a maternity girdle. Continue prenatals. Increase fluids. Disability in 3 weeks Sono for size dates. Discus sed comfort measures for backache. I ordered a maternity girdle. Continue prenatals. Increase fluids. Disability in 3 weeks. TDAP 11/08/25 -?-?-?-?-?-?-?-?-?-?-?-?- 33w 1d 107.048 kg 113/77 absent cephalic 33 14 5 active Start disability today. 11/08. Reports good movement. Denies leaking, bleeding, contractions. Complains of vaginal discharge and itching. Patient reports that the comfort measures she has been trying such as back brace have helped while at work. no lesion, white curdy discharge Disability starting today. Discussed labor precautions. Comfort measures for frequent yeast infections. Diflucan 150 p.o. daily x 3. And NuSwab today. Return in 2 weeks OB check JEAN-PAUL Calculator Estimated Delivery Date Method Current WG Current Estimate 12/26/25 LMP (Certain) 33w 4d Other Estimates 12/27/25 Ultrasound #1 33w 3d 12/18/25 Ultrasound #2 34w 5d 12/26/25 Manual 33w 4d Expected Delivery Route/Plan 24-year-old Anticipate labs are as follows: B+ positive/antibody negative/rubella immune/RPR nonreactive/HIV negative/hepatitis B surface antigen negative/hep C negative/GC chlamydia negative/NIPT 46 XY Specific Issue/Plans Pubic bone diastases brace ordered Notes Visit Date: 11/08/25 Last Updated by: Carolina Hahn CNM growth sono: 10/31/25: 32w3, EDC 12/23/25 . EFW 37w5 11/09: + yeast: 0n nuswab. treated with diflucan Visit Date: 09/26/25 Last Updated by: Carolina Hahn CNM B+,abs-, rpr;;nr, rub imm, hbsag-,hiv-,hc-, hiv-, gc/ct-, nipt-, 3rd tri lab wnl Visit Date: 08/29/25 Last Updated by: Mariaelena Lopez (OB Clinic)MD [facility] referral. Anatomy scan ordered for [facility]. Pelvic brace authorized. Follow-up in 4 weeks Office Procedures OBC Clinic LOC & Office Proc's Nursing/Assessment Patient Status: Established Patient OB Clinic Nursing Assessment: Medication Reconciliation, Update PMH in EMR and Vital Signs OB Clinic Coordination of Care: Consent,records obtained, informed consent, Education Simp Pt/Fam, Lab and Imaging orders, Results/Orders obtained and Staff clarify orders Special Needs: Heart tones Established Patient Charge Established Patient Point Assignment: 110 Established Patient Point Charge: EP Level 3 (80-115) Assessment & Plan Diagnosis / Problem List (1) Encounter for supervision of high risk in third trimester, antepartum: Status: Acute (2) Vaginitis: Status: Acute Qualifiers: Chronicity: acute Qualified Code(s): N76.0 - Acute vaginitis Plan NuSwab plus today. Diflucan 151 tab p.o. daily x 3. Comfort measures for vaginitis. Discussed labor precautions. Kick count twice a day. Start disability today,11/08/25. Return in 2 weeks OB check Additional Plan Follow Up: 2 Weeks (obc)
== END 2025-11-08 11:57 | disposition home or self-care (01) ==
LOC: HODSOBC 11:32
PROVIDERS: Supervising Provider Advanced Practice Midwife; Visit Provider Advanced Practice Midwife
DX: O09.893 Supervision of other high risk pregnancies, third trimester (principal); O23.593 Infection of other part of genital tract in pregnancy, third trimester; N76.0 Acute vaginitis; Z3A.33 33 weeks gestation of pregnancy
CPT/HCPCS: 99213; G0463

== ENCOUNTER 2025-11-30 11:28 | Outpatient (AMB) | payer BC, MEDICAID, SELFPAY ==
[2025-11-30 11:32] VITALS: BP 120/79; PULSE 82; RESP 16; TEMP 36.5; O2SAT 97; BMI 34.0
--- NOTE | 2025-11-30 11:32 | OBCLNT_ITS ---
Vital Signs 11/30/25 11:32 Height 1.78 m Height Method Stated Weight 107.728 kg Weight Measurement Method Standing Scale BMI 34.0 BP 120/79 Blood Pressure Source Automatic Cuff Blood Pressure Location Left Upper Arm Position Sitting Respiration 16 Pulse 82 Pulse Source Monitor Temp 97.7 F Temp Source Oral Pulse Oximetry (%) 97 Oxygen Delivery Method Room Air Allergies/Home Meds Allergies & Medications Allergies No Known Allergies Allergy (Verified 11/30/25 11:43) Medication Reconciliation vitamins-iron fumarate 66 mg iron-folic acid 1 mg tablet tab PO 11/30/25 [History Confirmed 11/30/25] Immunizations Immunizations Flu Vaccine in the Last 12 Months: Yes Date of most recent flu vaccination: 11/30/25 Flu Vaccine Exclusion Criteria: Already Received Care OB Visit Log OB Flowsheet Initial Weight: Not Recorded Date -?-?-?-?-?-?-?-?-?-?-?-?- EGA Weight BP Alb Glu CTX Pres Fundal ht FHR Mov Dilation Station Effacement Hx Notes Visit Note 07/08/25 -?-?-?-?-?-?-?-?-?-?-?-?- 15w 4d 91.399 kg 120/76 15 Patient has some spotting recently. She also thinks she has a yeast infection. She was on amoxicillin recently for sinus infection. No heavy bleeding or cramps. Ultrasound was done revealing a live intrauterine measuring 5 weeks with cardiac activity in the 140s. 08/08/25 -?-?-?-?-?-?-?-?-?-?-?-?- 20w 0d 96.218 kg 107/68 20 +FM No UCs or LOF +yeast infection: Diflucan 08/29/25 -?-?-?-?-?-?-?-?-?-?-?-?- w 0d 98.997 kg 129/82 23 147 +FM No UCs or LOF 09/26/25 -?-?-?-?--?-?-?-?-?-?-?-?- w 0d 101.605 kg 114/74 absent unknown 26 145 active Increased third trimester discomforts and back pain. Reports movement. Denies labor Comfort measures for back pain. Get a follow-up on her maternity garment that was ordered. Reviewed dates, reviewed labs. Return in 3 weeks OB check 10/03/25 -?-?--?-?-?-?-?-?-?-?-?-?- 28w 0d absent unknown Virtual appointment today for questions about dentist appointment. Patient had a root canal during the process the dentist gave her amoxicillin because she has wisdom teeth that are infected. And patient want to make sure it was safe. Reports good movement. Denies leaking, bleeding, contractions Okay to take amoxicillin 500 p.o. 3 times daily for infection. Follow dentist orders. Discussed comfort measures and oral hygiene. Return for scheduled OB appointment 10/17/25 -?-?-?-?-?-?--?-?-?-?-?-?- 30w 0d 103.192 kg 109/72 absent cephalic 28 14 5 active Continued lower back pain. 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 Reports good movement. Denies leaking, bleeding, contractions Sono for size da dane. Discussed comfort measures for backache. I ordered a maternity girdle. Continue prenatals. Increase fluids. Disability in 3 weeks Sono for size dates. Discus sed comfort measures for backache. I ordered a maternity girdle. Continue prenatals. Increase fluids. Disability in 3 weeks. TDAP 11/08/25 -?-?-?-?-?-?-?-?-?-?-?-?- 33w 1d 107.048 kg 113/77 absent cephalic 33 14 5 active Start disability tod ay. 11/08. Reports good movement. Denies leaking, bleeding, contractions. Complains of vaginal discharge and itching. Patient reports that the comfort measures she has been trying such as back brace have helped while at work. no lesion, white curdy discharge Disability starting today. Discussed labor precautions. Comfort measures for frequent yeast infections. Di flucan 150 p.o. daily x 3. And NuSwab today. Return in 2 weeks OB check 11/30/25 -?-?-?-?-?-?-?-?-?-?-?-?- 36w 2d 107.728 kg 120/79 absent cephalic 36 14 5 active Reports good movement. Denies leaking, bleeding, contractions. Discussed kick count. Discussed labor precautions. GBS today. Continue prenatals. Increase fluids. JEAN-PAUL Calculator Estimated Delivery Date Method Current WG Current Estimate 12/26/25 LMP (Certain) 36w 2d Other Estimates 12/27/25 Ultrasound #1 36w 1d 12/18/25 Ultrasound #2 37w 3d 12/26/25 Manual 36w 2d Expected Delivery Route/Plan 24-year-old Anticipate labs are as follows: B+ positive/antibody negative/rubella immune/RPR nonreactive/HIV negative/hepatitis B surface antigen negative/hep C negative/GC chlamydia negative/NIPT 46 XY Specific Issue/Plans Pubic bone diastases brace ordered Notes Visit Date: 11/30/25 Last Updated by: Carolina Hahn CNM 10/31/25: IUP @32w3. EFW 37%, SHENA wnl, no previa.vertex Visit Date: 11/08/25 Last Updated by: Carolina Hahn CNM growth sono: 10/31/25: 32w3, EDC 12/23/25 . EFW 37w5 11/09: + yeast: 0n nuswab. treated with diflucan Visit Date: 09/26/25 Last Updated by: Carolina Hahn CNM B+,abs-, rpr;;nr, rub imm, hbsag-,hiv-,hc-, hiv-, gc/ct-, nipt-, 3rd tri lab wnl Visit Date: 08/29/25 Last Updated by: Mariaelena Lopez (OB Clinic)MD [facility] referral. Anatomy scan ordered for [facility]. Pelvic brace authorized. Follow-up in 4 weeks Office Procedures OBC Clinic LOC & Office Proc's Nursing/Assessment Patient Status: Established Patient OB Clinic Nursing Assessment: Medication Reconciliation, Update PMH in EMR and Vital Signs OB Clinic Coordination of Care: Complex Care and Chronic Disease 1-5, Consent,records obtained, informed consent, Education Simp Pt/Fam, 1 Ins Authorization, Lab and Imaging orders, Results/Orders obtained and Staff clarify orders Special Needs: Heart tones Miscellaneous Interventions: Culture Specimen Collection Established Patient Charge Established Patient Point Assignment: 165 Established Patient Point Charge: EP Level 5 (160-above) Injection/Vaccine Admin Admin 1st Vaccine: Yes Immunizations flu vac ts (6mos up)-PF 45 mcg(15mcg x3)/0.5 mL IM syringe Performing Provider: Carolina Hahn CNM Performing Location: [facility] Administered by: Kelsie Walker MA on 11/30/25 13:48 Dose Route Admin Location Dispensed Lot Number Expiration Date Pack age [facility] [employer] 0.5 mL IM Left Deltoid 0.5 mL [id number] 05/30/26 [id number] [employer] VIS Given Date VIS Provided VIS Publication Date 11/30/25 Single Vaccine 24 Eligibility Eligibility Date Funding Source Public Non-[facility] Assessment & Plan Diagnosis / Problem List (1) Encounter for supervision of high risk in third trimester, antep artum: Status: Acute (2) Voagz-bfs-rafzy fetus, third trimester: Status: Acute Plan GBS today. Discussed labor precautions and labor precautions. Discussed kick count twice a day. Discussed danger signs and symptoms and ER precautions. And we reviewed ultrasound and return in a week for OB check Additional Plan Follow Up: 1 Week (obc)
== END 2025-11-30 12:10 | disposition home or self-care (01) ==
LOC: HODSOBC 11:28
PROVIDERS: Supervising Provider Advanced Practice Midwife; Visit Provider Advanced Practice Midwife
DX: O09.893 Supervision of other high risk pregnancies, third trimester (principal); O36.5930 Maternal care for other known or suspected poor fetal growth, third trimester, not applicable or unspecified; Z3A.36 36 weeks gestation of pregnancy; Z36.85 Encounter for antenatal screening for Streptococcus B; Z23 Encounter for immunization
CPT/HCPCS: 90471; 90656; 99215; G0463